=== PATIENT | female | born 1965 | race Caucasian/White ===

== ENCOUNTER 2020-01-04 12:57 | Emergency (ER) | payer SELFPAY ==
[~2020-01-04] VITALS: Ht 167.6 cm; Wt 81.8 kg
[~2020-01-04 12:57] MED LIST: CALTRATE-600 W600 MG PO; GABAPENTIN300 M1 PO; LEVAQUIN 5500 MG/TAB PO; LORTAB 7.5/5001 TAB PO; MOTRIN 400400 MG/TAB PO; MVI; PERCOCET 325 MG1 TAB PO
[2020-01-04 13:00] VITALS: TEMP 97.8
[2020-01-04 13:33] LABS: BASO % 0.5 % (0.0-2.0); EOS % 0.4 % (0-4.0); GRAN # 5.8 (1.4-6.5); GRAN % 75.9 % (42.2-75.2); HEMATOCRIT 41.4 % (37.0-47.0); LYMPH # 1.3 (1.2-3.4); MEAN CELL VOLUME 94 fl (80.0-100.0); MEAN CORPUSCULAR HEMOGLOBIN 32 pg (27.0-31.0); MEAN CORPUSCULAR HGB CONC 34 g/dl (33.0-37.0); MONO # 0.4 (0.1-0.6); PLATELET COUNT 154 K/mm3 (130-400); REDCELL DISTRIBUTION WIDTH-CV 13.1 % (11.5-14.5)
[2020-01-04 13:43] LABS: ALANINE AMINOTRANSFERASE 55 U/L (4-34); ALBUMIN 4.1 gm/dL (3.5-5.0); ALCOHOL(ethanol),MEDICAL 233 mg/dL; ALKALINE PHOSPHATASE 79 U/L (50-136); ANION GAP 11 mmol/L (7-16); AST,SGOT 89 U/L (15-37); BILIRUBIN,TOTAL 0.6 mg/dL (0.0-1.0); BLOOD UREA NITROGEN 10 mg/dL (7-17); CALCIUM 8.7 mg/dL (8.4-10.2); CARBON DIOXIDE 26 mmol/L (22-30); CHLORIDE 107 mmol/L (98-107); GLUCOSE 127 mg/dL (74-106); POTASSIUM 3.4 mmol/L (3.4-5.0); SODIUM 143 mmol/L (137-145); TOTAL PROTEIN 7.3 gm/dL (6.4-8.2)
[2020-01-04 13:54] LABS: PARTIAL THROMBOPLASTIN TIME 29.4 SECONDS (26.0-37.0)
[2020-01-04 13:55] LABS: PROTHROMBIN TIME 11.2 SECONDS (9.7-12.8)
[2020-01-04 14:07] LABS: TROPONIN-I < 0.012 ng/mL (0.000-0.035)
[2020-01-04 14:12] LABS: TSH w REFLEX 0.945 uIU/mL (0.465-4.680)
[2020-01-04 15:05] VITALS: BP 144/92; PULSE 109
== END 2020-01-04 15:36 | disposition short-term general hospital (02) ==
LOC: COL.ER 12:57
PROVIDERS: Emergency Medicine
DX: S06.6X0A Traumatic subarachnoid hemorrhage without loss of consciousness, initial encounter (principal); S42.212A Unspecified displaced fracture of surgical neck of left humerus, initial encounter for closed fracture; S00.03XA Contusion of scalp, initial encounter; F10.129 Alcohol abuse with intoxication, unspecified; S80.212A Abrasion, left knee, initial encounter; S80.211A Abrasion, right knee, initial encounter; I48.91 Unspecified atrial fibrillation; R40.2412 Glasgow coma scale score 13-15, at arrival to emergency department; V47.5XXA Car driver injured in collision with fixed or stationary object in traffic accident, initial encounter
CPT/HCPCS: J3411; J7030